=== PATIENT | female | born 1985 | race Caucasian/White ===

== ENCOUNTER 2020-10-11 18:22 | Emergency (ER) | payer OTHER, SELFPAY ==
[~2020-10-11] VITALS: Ht 172.7 cm; Wt 71.4 kg
[2020-10-11] MEDS ORDERED: LIDOcaine 1% 30ml preserv. free vial IJ ONE (18:50)
[2020-10-11] MEDS ORDERED: etomidate 2mg/ml inj. IV ONE (18:50)
[2020-10-11] MEDS ORDERED: ondansetron/PF 4mg/2ml inj IV ONE ×3 (18:50→20:40)
[2020-10-11] MEDS ORDERED: fentaNYL/PF 50MCG/1 ML 2ML syringe IV ONE ×3 (18:50→20:40)
[2020-10-11] MEDS ORDERED: diazepam inj 5 MG/ML inj. IV ONE (19:20)
[2020-10-11] MEDS ORDERED: HYDR-3972 PO (20:38)
[2020-10-11] MEDS ORDERED: ONDA4TAB6 PO (20:38)
[2020-10-11 20:55] VITALS: BP 135/87
== END 2020-10-11 21:15 | disposition home or self-care (01) ==
LOC: ER 18:23
DX: S52.532A Colles' fracture of left radius, initial encounter for closed fracture (principal); S53.105A Unspecified dislocation of left ulnohumeral joint, initial encounter; V00.311A Fall from snowboard, initial encounter; Y93.23 Activity, snow (alpine) (downhill) skiing, snowboarding, sledding, tobogganing and snow tubing; Y92.89 Other specified places as the place of occurrence of the external cause; Y99.8 Other external cause status
CPT/HCPCS: 25605; 73090; 94799; 96374; 99152; 99153; 99285; J2405; J3010; J3360; 94760; 96375; 96376; 99284

== ENCOUNTER 2020-10-20 08:59 | Day surgery (SDC) | payer OTHER, SELFPAY ==
[~2020-10-20] VITALS: Ht 172.7 cm; Wt 70.0 kg
[~2020-10-20 08:59] MED LIST: BUPIVAcaine/PF 2.5mg/ml (0.25%) 10ml vial ONE; HYDR-3972 PO; ONDA4TAB6 PO
[2020-10-20 09:50] VITALS: BP 127/94
[2020-10-20] MEDS ORDERED: ceFAZolin 2gm in dextrose, iso 50 ML IV ONE (10:32)
[2020-10-20] MEDS ORDERED: ringers solution, lacted 1,000 ML IV SCH ×2 (10:32→13:00)
[2020-10-20] MEDS ORDERED: ALLERGY TAB (10:33)
[2020-10-20] MEDS ORDERED: famotidine 20mg tablet PO ONE (10:40)
[2020-10-20] MEDS ORDERED: cloNIDine hcl/PF 100mcg/ml inj ONE (11:06)
[2020-10-20] MEDS ORDERED: BUPIVAcaine/PF 2.5mg/ml (0.25%) 10ml vial ONE (11:14)
[2020-10-20] MEDS ORDERED: sevoflurane 250ml liquid IH ONE (11:32)
[2020-10-20] MEDS ORDERED: midazolam 1 mg/ML 2ml injection ONE (11:38)
[2020-10-20] MEDS ORDERED: fentaNYL /PF 50mcg/ml 5ml ampule ONE (11:43)
[2020-10-20] MEDS ORDERED: ROPIVAcaine 0.5% (5mg/ml) 30ml vial ONE (12:05)
[2020-10-20] MEDS ORDERED: propofol inj 20 ML IV ONE (12:05)
[2020-10-20] MEDS ORDERED: LIDOcaine 2% (20mg/ml) 5ml vial ONE (12:05)
[2020-10-20] MEDS ORDERED: dexamethasone sod phosphate 4mg/ml inj. ONE (12:05)
[2020-10-20] MEDS ORDERED: ondansetron/PF 4mg/2ml inj ONE (12:05)
[2020-10-20] MEDS ORDERED: acetaminophen 1,000mg/100ml IV 100 ML IV ONE (12:44)
[2020-10-20] MEDS ORDERED: labetalol 20mg/4ml (5mg/ml) syringe IV PRN (13:00)
[2020-10-20] MEDS ORDERED: ketorolac trometh. 30mg/ml inj. IV ONE (13:00)
[2020-10-20] MEDS ORDERED: meperidine/PF 25mg/ml syringe IV PRN ×3 (13:00)
[2020-10-20] MEDS ORDERED: ondansetron/PF 4mg/2ml inj IV PRN (13:00)
[2020-10-20] MEDS ORDERED: proCHLORperazine 10 MG/2 ml inj IV PRN (13:00)
[2020-10-20] MEDS ORDERED: hydrALAZINE 20mg/ml inj. IV PRN (13:00)
[2020-10-20] MEDS ORDERED: morphine 4 MG/ML inj SYRINge IV PRN (13:00)
[2020-10-20] MEDS ORDERED: morphine 2 MG/ML inj. syringe IV PRN (13:00)
[2020-10-20 13:35] VITALS: BP 118/81
--- NOTE | 2020-10-20 13:35 | NUR ---
Received from OR via [facility], accompanied by Anesthesiologist DR BUCKLEY and report given by Anesthesiologist. PATIENT WAKING UP, DENIES PAIN-AXILLARY BLOCK DONE, V/S WNL, NEUROVASCULAR CHECKS INTACT-LEFT FINGERS PINK WARM, +CAP REFILL, SCD ON, LEFT WRIST DRESSING-CDI, ELEVATED WITH ICE BAG APPLIED. 20G RUE.
[2020-10-20 13:40] VITALS: BP 117/75
[2020-10-20 13:50] VITALS: BP 94/77
[2020-10-20 14:00] VITALS: BP 120/80
[2020-10-20 14:10] VITALS: BP 115/72
--- NOTE | 2020-10-20 14:25 | NUR ---
PATIENT A&OX4, DENIES PAIN, V/S WNL, NEUROVASCULAR CHECKS INTACT-LEFT FINGERS PINK WARM, +CAP REFILL, SCD OFF, LEFT WRIST DRESSING-CDI ELEVATED WITH ICE BAG APPLIED, ARM IN SLING. 20G RUE D/C WITH NO COMPLICATIONS OBSERVED. I HAVE REVIEWED D/C INSTRUCTIONS WITH PATIENT AND FAMILY AND THEY HAVE VERBALIZED UNDERSTANDING. PATIENT D/C HOME WITH FAMILY TO TRANSPORT AND ALL BELONGINGS..
== END 2020-10-20 14:25 | disposition home or self-care (01) ==
LOC: PAS 08:59
PROVIDERS: ATTEND Orthopaedic Surgery Hand Surgery
DX: S52.572A Other intraarticular fracture of lower end of left radius, initial encounter for closed fracture (principal); G56.02 Carpal tunnel syndrome, left upper limb; M25.532 Pain in left wrist; X58.XXXA Exposure to other specified factors, initial encounter; Y93.89 Activity, other specified; Y92.89 Other specified places as the place of occurrence of the external cause; Y99.8 Other external cause status
CPT/HCPCS: 25609; 36415; 64721; 87426; A6222; C1713; J0131; J0735; J1100; J2001; J2250; J2405; J2704; J3010; J3490; A4618; A6449; A7000; J2795; J7120